=== PATIENT | male | born 2000 | race Caucasian/White ===

== ENCOUNTER 2021-12-02 12:58 | Emergency (ER) | payer OTHER ==
[2021-12-02 14:13] LABS: HEMOGLOBIN 14.8 gm/dl (14.0-17.5); RED BLOOD COUNT 4.83 M/UL (4.20-5.50); WHITE BLOOD COUNT 5.2 K/UL (4.5-11.0)
[2021-12-02 14:43] LABS: BUN/CREATININE RATIO 19 (0-10)
== END 2021-12-03 16:10 | disposition short-term general hospital (02) ==
LOC: ER1 12:58
PROVIDERS: Emergency Medicine
DX: R45.851 Suicidal ideations (principal); Z20.822 Contact with and (suspected) exposure to COVID-19
CPT/HCPCS: 80053; 80307; 81001; 85025; 99285; U0002